=== PATIENT | male | born 1990 | race African-American/Black ===

== ENCOUNTER 2017-05-29 23:46 | Emergency (ER) | payer SELFPAY ==
[~2017-05-29] VITALS: Ht 182.9 cm; Wt 86.0 kg
[2017-05-30 01:02] VITALS: BP 131/91
== END 2017-05-30 02:15 | disposition home or self-care (01) ==
LOC: ER 23:46
DX: S60.021A Contusion of right index finger without damage to nail, initial encounter (principal); Y04.0XXA Assault by unarmed brawl or fight, initial encounter; Y93.89 Activity, other specified; Y92.89 Other specified places as the place of occurrence of the external cause; F17.210 Nicotine dependence, cigarettes, uncomplicated
CPT/HCPCS: 73130; 99284